=== PATIENT | male | born 1980 | race African-American/Black ===

== ENCOUNTER 2019-08-27 17:39 | Emergency (ER) | payer MEDICARE, MEDICAID, SELFPAY ==
--- NOTE | ~2019-08-27 | CT_ITS ---
EXAMINATION: CT abdomen pelvis wo con DATE: 08/27/2019 20:12 INDICATION: Lower abdominal pain. History of multiple sclerosis. TECHNIQUE: Computed tomography (CT) of the abdomen and pelvis was performed without intravenous contr ast. The dose-length product was 362.32 mGy-cm. Automated exposure control and iterative reconstructi on technique were employed. COMPARISON: None. FINDINGS: Lung bases unremarkable. Heart size normal. No pleural or pericardial effusion. The liver, spleen, pancreas, adrenal glands and kidneys are unremarkable. Gallbladder is present. No significant vascular abnormality. No lymphadenopathy. No free air or free fluid. Nonobstructive bowel gas pattern. No acute osseous abnormality. No renal stones or hydronephrosis. IMPRESSION: 1. No acute abdominal abnormality. Reviewed, dictated and finalized at location A.
[2019-08-27 18:37] VITALS: BP 128/85; PULSE 65; RESP 18; TEMP 36.4; O2SAT 100
--- NOTE | 2019-08-27 19:18 | ED.GENADULT ---
HPI - General Adult General Chief complaint: Urogenital-Male Stated complaint: urine problems/unable to urinate Time Seen by Provider: 08/27/19 19:07 Source: RN notes reviewed History of Present Illness HPI narrative: Patient presents emergency department from home for urinary retention. Patient states he has a history of multiple sclerosis and his urinary retention has progressively been worsening. He states that several years ago he seen a urologist in [place] and they discussed self catheterization. Patient states he is usually able to urinate once a day was been having difficulties since the fourth with decreased urination. States he does feel some distention in his lower abdomen. He denies any fevers or chills nausea vomiting or any other symptoms Related Data Allergies Allergy/AdvReac Type Severity Reaction Status Date / Time No Known Allergies Allergy Unverified 01/12/17 18:20 Review of Systems Review of Systems: Narrative: Gen.: Denies fevers or chills ENT: Denies congestion Respiratory: Denies shortness of breath or cough CV: Denies chest pain or palpitations GI: Denies abdominal pain nausea, emesis or diarrhea see HPI Musculoskeletal: Denies back pain or muscle pain Neuro: Reports MS Skin: Denies rash Except as documented, all other systems reviewed and negative PMFSH Past Medical History Medical History (Updated 08/27/19 @ 22:14 by Gabo Pabon DO) Multiple sclerosis Social History Social History (Updated 08/27/19 @ 19:22 by Gabo Pabon DO) Smoking status: Never smoker Gender identity (if verbalized by the patient): Male Exam Narrative: Exam Narrative: APPEARANCE: No acute distress, nontoxic, resting in bed EYES: EOMI HEENT: Normocephalic, atraumatic, OMM RESPIRATORY: No respiratory distress Clear to auscultation bilaterally with no rhonchi wheezing or rales. CARDIOVASCULAR: Regular rate and rhythm without murmurs rubs or gallops. ABDOMINAL: Soft, nontender, nondistended, no rebound or guarding MUSCULOSKELETAl: Moves all extremities. NEURO: Awake and alert. Following commands, speech normal, SKIN:: Warm, dry. No rashes lesions or abrasions PSYCHIATRIC: Normal affect/mood, Course Course Emergency Course: Discussed with Dr. Kuhn presentation work-up. This time feels patient may be discharged home as he does not seem to be retaining urine with follow-up as an outpatient Discussed with patient results of workup and diagnosis. Discussed need for follow-up with primary care, proper use of medication, and reasons to return to the emergency department. Patient understands and agrees to current treatment plan Vital Signs Vital signs: Vital Signs Temperature 97.6 F 08/27/19 18:37 Pulse Rate 65 08/27/19 18:37 Respiratory Rate 18 08/27/19 18:37 Blood Pressure 128/85 08/27/19 18:37 Pulse Oximetry 100 08/27/19 18:37 Temperature 97.6 F 08/27/19 18:37 Pulse Rate 65 08/27/19 18:37 Respiratory Rate 18 08/27/19 18:37 Blood Pressure 128/85 08/27/19 18:37 Pulse Oximetry 100 08/27/19 18:37 Medical Decision Making Vital Signs Vital Signs: Vital Signs Temperature 97.6 F 08/27/19 18:37 Pulse Rate 65 08/27/19 18:37 Respiratory Rate 18 08/27/19 18:37 Blood Pressure 128/85 08/27/19 18:37 Pulse Oximetry 100 08/27/19 18:37 Temperature 97.6 F 08/27/19 18:37 Pulse Rate 65 08/27/19 18:37 Respiratory Rate 18 08/27/19 18:37 Blood Pressure 128/85 08/27/19 18:37 Pulse Oximetry 100 08/27/19 18:37 Lab Data Result diagrams: 08/27/19 19:25 08/27/19 19:25 Labs: Lab Results 08/27/19 08/27/19 08/27/19 Range/Units 19:25 19:25 20:26 WBC 6.0 (4.5-10.0) K/mm3 RBC 5.23 (4.6-6.20) M/mm3 Hgb 15.2 (14.0-18.0) g/dL Hct 45.5 (42.0-52.0) % MCV 87.0 (80-100) fl MCH 29.1 (26-34) pg MCHC 33.4 (32-36) g/dl RDW 14.3 (11.5-14.5) % Plt Count 210 (150-375)
[2019-08-27 19:29] LABS: Basophils Absolute Auto 0.1 K/mm3 (0.0-0.1); Basophils Percent Auto 0.8 % (0.2-1.2); Eosinophils Absolute Auto 0.1 K/mm3 (0-0.3); Eosinophils Percent Auto 0.8 % (0-4.4); Hematocrit 45.5 % (42.0-52.0); Hemoglobin 15.2 g/dL (14.0-18.0); Immature Granulocyte Absolute 0.01 K/mm3 (0.00-0.031); Immature Granulocyte Percent A 0.2 % (0-0.5); Lymphocytes Absolute Auto 2.19 K/mm3 (0.9-3.2); Lymphocytes Percent Auto 36.8 % (18.3-44.2); Mean Corpuscular HGB Conc 33.4 g/dl (32-36); Mean Corpuscular Hemoglobin 29.1 pg (26-34); Mean Platelet Volume 9.3 fl (7.4-10.4); Monocytes Absolute Auto 0.6 K/mm3 (0.1-0.6); Monocytes Percent Auto 10.1 % (2.6-8.5); Neutrophils Absolute Auto 3.1 K/mm3 (1.3-6.7); Neutrophils Percent Auto 51.3 % (45.5-73.1); Platelet Count Result 210 k/mm3 (150-375); Red Blood Count 5.23 M/mm3 (4.6-6.20); Red Cell Distribution Width 14.3 % (11.5-14.5)
[2019-08-27 19:43] LABS: Blood Urea Nitrogen 18 mg/dL (9-20); Calcium 9.1 mg/dL (8.4-10.2); Carbon Dioxide 28 mmol/L (22-30); Estimated CRCL calculation 120 ml/min; Estimated Glomerular Filt Rate > 60; Glucose 102 mg/dL (75-110); Potassium 3.7 mmol/L (3.4-5.0); Sodium 140 mmol/L (137-145)
[2019-08-27 19:48] LABS: Chloride 106 mmol/L (98-107)
[2019-08-27 20:45] LABS: Add Urine Microscopic? YES; Appearance Urine Clear (Clear); Bacteria Urine Trace /hpf; Bilirubin Urine Negative (Negative); Blood Urine Negative (Negative); Calcium Oxalate Crystals Urine Present /hpf; Color Urine Yellow (Yellow); Glucose Urine UA Negative (Negative); Ketones Urine Trace mg/dL (Negative); Leukocyte Esterase Ur Negative LEU/UL (Negative); Mucus Urine Rare /lpf; Nitrate Urine Negative (Negative); Protein Urine 1+ mg/dL (Negative); Squamous Epithelial Cell Urine Few /hpf (Few); WBC Urine 0-3 /hpf
[2019-08-27 20:47] LABS: Specific Grav Ur 1.034 (1.001-1.035)
[2019-08-27 21:00] VITALS: BP 115/74; PULSE 60; RESP 18; O2SAT 97
[2019-08-27 22:00] VITALS: BP 112/70; PULSE 58; RESP 16; O2SAT 98
[2019-08-27 22:40] VITALS: BP 110/73; PULSE 56; RESP 18; O2SAT 98
== END 2019-08-27 22:50 | disposition home or self-care (01) ==
PROVIDERS: Emergency Medicine; Emergency Provider Emergency Medicine; PCP Physician Assistant
DX: R39.11 Hesitancy of micturition (principal); G35 Multiple sclerosis
CPT/HCPCS: 36415; 74176; 80048; 81001; 85025; 99284